=== PATIENT | female | born 1985 | race Caucasian/White ===

== ENCOUNTER 2020-09-16 14:50 | Emergency (ER) | payer OTHER, MEDICAID ==
[2020-09-16 14:58] VITALS: BP 122/75
[2020-09-16] MEDS ORDERED: HYDROCODONE/ACETAMINOPHEN 5-325 MG (6 TAB/ER DISP) PO PRN (15:23)
--- NOTE | 2020-09-16 15:29 | ER Document Report ---
HPI - HPI Patient complains to provider of: ear pain Time Seen by Provider: 09/16/20 15:06 Pain Level: Denies Context: 35-year-old female presents to the emergency room complaining of worsening right ear pain and fever. Patient states she has been having pain for the past 2 days. Was seen at urgent care yesterday states she was diagnosed with swimmer's ear and was discharged home on neomycin eardrops. States she woke up this morning with a fever of 1027 worsening pain. Took Advil with minimal relief. Denies any trauma or injury. Denies any recent swimming or flying. Associated Symptoms: Fever Exacerbated by: Denies Relieved by: Denies Similar symptoms previously: No Recently seen / treated by doctor: Yes - Seen at urgent care yesterday. - ROS Systems Reviewed and Negative: Yes All other systems reviewed and negative - CONSTITUTIONAL Constitutional: REPORTS: Fever - EENT EENT: REPORTS: Ear Pain - NEURO Neurology: DENIES: Headache, Weakness - REPRODUCTIVE Reproductive: DENIES: : - DERM Skin Color: Normal, [place] Skin Problems: None Past Medical History - General Information source: Patient - Social History Smoking Status: Never Smoker Frequency of alcohol use: None Drug Abuse: None Family History: Reviewed & Not Pertinent Vertical Provider Document - CONSTITUTIONAL Agree With Documented VS: Yes Exam Limitations: No Limitations General Appearance: Mild Distress - INFECTION CONTROL TRAVEL OUTSIDE OF THE [place] IN LAST 30 DAYS: No - HEENT HEENT: Atraumatic, Normocephalic. negative: Pharyngeal Exudate, Pharyngeal Tenderness, Pharyngeal Erythema Notes: Bilateral outer ear canals with erythema and swelling. Unable to visualize tympanic membrane to the right ear. Left tympanic membrane is erythematous and bulging. Is no active discharge or draining noted Positive for preauricular lymphadenopathy on the right. Nontender to the mastoid bilaterally. - NECK Neck: Normal Inspection, Supple. negative: Lymphadenopathy-Left, Lymphadenopathy-Right - RESPIRATORY Respiratory: Breath Sounds Normal, No Respiratory Distress - CARDIOVASCULAR Cardiovascular: No Murmur, Tachycardia - NEURO Level of Consciousness: Awake, Alert, Appropriate Motor/Sensory: No Motor Deficit, No Sensory Deficit - DERM Integumentary: Warm, Dry, No Rash Course - Re-evaluation Re-evalutation: 09/16/20 15:25 Instilled ear wick as documented. Counseled patient on diagnosis. Patient with bilateral outer ear canal swelling left tympanic membrane also erythematous and bulging. Unable to visualize right tympanic membrane. Will add oral amoxicillin, she was counseled to continue with the eardrops as prescribed. Will discharge home with #6 of [place].. She was counseled on the importance of outpatient follow-up with ENT if not improving in 2 days. On-call physician will be provided. Continue to take Tylenol and or Motrin for fevers. Patient was given strict return to the emergency room guidelines. Return for any new or worsening symptoms. All questions were answered. Patient verbalized understanding and agrees with plan of care. 09/16/20 15:28 09/16/20 17:47 - Vital Signs Vital signs: Temp Pulse Resp BP Pulse Ox 99.0 F 110 H 20 122/75 98 09/16/20 14:57 09/16/20 14:57 09/16/20 14:57 09/16/20 14:57 09/16/20 14:57 Procedures - Additional Procedures ear wick Time performed: 15:24 Notes: 09/16/20 15:24 Instilled earwax into right outer ear canal. Instilled neomycin eardrops into ear until ear wick expanded. Patient tolerated well. Discharge - Discharge Clinical Impression: Bilateral otitis media Qualifiers: Otitis media type: unspecified Qualified Code(s): H66.93 - Otitis media, unspecified, bilateral Bilateral otitis externa Qualifiers: Otitis externa type: unspecified type Chronicity: acute Qualified Code(s): H60.503 - Unspecified acute noninfective otitis externa, bilateral Condition: Stable Disposition: HOME, SELF-CARE Instructions: Acetaminophen, Using Ear Drops with a Wick ([facility]), Oral Narcotic Medication ([facility]), Otitis Externa ([facility]), Otitis Media ([facility]) Additional Instructions: Continue with use of eardrops as directed. Keep ears clean and dry. Instill cottonball to right ear after using your eardrops. Ear wick should fall out in the next 2 to 3 days. Take amoxicillin as prescribed. Continue with Tylenol and or Motrin as needed for fevers. Take the [place] for severe pain. Follow-up with ENT if not improving in 2 to 3 days. Return to the emergency room for any new or worsening symptoms. Prescriptions: Amoxicillin 1 tab PO TID 10 Days #30 tab Forms: Return to Work Referrals: MADELAINE DAVENPORT MD [ACTIVE STAFF] - Follow up as needed
== END 2020-09-16 15:26 | disposition home or self-care (01) ==
LOC: ER 14:50
DX: H66.93 Otitis media, unspecified, bilateral (principal); H60.503 Unspecified acute noninfective otitis externa, bilateral; H60.339 Swimmer's ear, unspecified ear; R50.9 Fever, unspecified
CPT/HCPCS: 99283